=== PATIENT | female | born 1935 | race Caucasian/White ===

== ENCOUNTER → 2018-05-25 | Day surgery (SDC) | payer MEDICARE, OTHER ==
[~2018-05-25] MED LIST: ASPIRIN 325 MG TABLET PO PRN; DIAZEPAM 5 MG TABLET PO PRN; DIPHENHYDRAMINE HCL 25 MG CAPSULE PO PRN; NORMAL SALINE 1000 ML 1,000 ML IV PRN; VERAPAMIL HCL 5 MG, LIDOCAINE HCL/PF 4 ML, NORMAL SALINE 12 ML, NITROGLYCERIN/D5W 0.4 M... IV PRN
[2018-05-25 07:20] VITALS: BP 152/91
== END ==
LOC: CCL 06:51
PROVIDERS: ATTEND Internal Medicine Cardiovascular Disease
DX: R69 Illness, unspecified (principal)
CPT/HCPCS: J3490

== ENCOUNTER 2018-06-01 06:56 | Day surgery (SDC) | payer MEDICARE, OTHER ==
[2018-06-01] MEDS ORDERED: HEPARIN SODIUM,PORCINE/NS/PF 2,000 UNIT/1,000 ML RTUINJ IV ONE (08:07)
[2018-06-01] MEDS ORDERED: LIDOCAINE 1% INJ-PF (10 MG/ML) 30 ML SDV ONE (08:07)
[2018-06-01] MEDS ORDERED: MIDAZOLAM 2 MG/2 ML INJ ONE (08:15)
[2018-06-01] MEDS ORDERED: FLUMAZENIL INJ 0.5 MG/5 ML VIAL ONE (08:15)
[2018-06-01] MEDS ORDERED: NALOXONE HCL INJ/PF 0.4 MG/1 ML SDV ONE (08:16)
[2018-06-01] MEDS ORDERED: ATROPINE SULFATE INJ 1 MG/10 ML DISP.SYRIN IV ONE (08:16)
[2018-06-01] MEDS ORDERED: FENTANYL CITRATE INJ/PF 100 MCG/2 ML AMPUL ONE (08:16)
[2018-06-01] MEDS ORDERED: EPINEPHRINE INJ 1 MG/10 ML DISP.SYRIN ONE (08:16)
[2018-06-01] MEDS ORDERED: HEPARIN SOD (PORCINE) 1,000 UNIT/ML 10 ML VIAL ONE ×2 (08:16→08:17)
[2018-06-01] MEDS ORDERED: VERAPAMIL HCL INJ/PF 5 MG/2 ML SDV IV ONE (08:17)
[2018-06-01] MEDS ORDERED: NITROGLYCERIN/D5W 50 MG/250 ML RTUINJ IV ONE (08:17)
--- NOTE | 2018-06-01 10:51 | Operative Report ---
Operative Report DATE OF SURGERY: 06/01/18 PREOPERATIVE DIAGNOSIS: Dyspnea POSTOPERATIVE DIAGNOSIS: No evidence of significant obstructive coronary artery disease. Low left-sided filling pressures OPERATION: Left heart catheterization with selective coronary angiography SURGEON: KALYANI WARREN ANESTHESIA: Moderate Sedation - 26 minutes COMPLICATIONS: None ESTIMATED BLOOD LOSS: None INTRAOPERATIVE FINDINGS: No evidence of significant obstructive coronary artery disease. Low left-sided filling pressures PROCEDURE: Procedure #1 left heart catheterization with selective cholangiography Indication Mrs. Hyde is a very pleasant 82-year-old female with a negative myocardial perfusion study and a normal echocardiogram who has dyspnea on exertion and has had the request to perform left heart catheterization with selective coronary angiography and right heart catheterization for evaluation of coronary anatomy. The patient and her family understand the risks benefits and alternatives including but not limited to heart attack stroke surgery emergent surgery contrast nephropathy and radiation exposure and have expressed his desire to proceed with left heart catheterization and selective coronary angiography and right heart catheterization for evaluation of her coronary anatomy. They understand there is no surgery on site and a EMS is standing by for transfer if required Primary mandrel maker Selvin Oliva Complications none. Consent signed on chart. Procedure patient was prepped and draped in the usual sterile fashion after being brought to the cardiac catheterization laboratory in the fasting state. Conscious sedation was performed for 26 minutes. An independent trained observer push medications at my direction and continuous hemodynamic monitoring was performed. Utilizing ultrasound guidance the right basilic vein could not visualized and utilizing a standard tech after 1% Xylocaine was infiltrated the right radial artery was successfully cannulated with a 6 x 11 cm sheath. After 5000 units of heparin and 200 mcg of nitroglycerin were administered, left heart catheterization with selective coronary angiography was performed utilizing enteric catheter. Hemodynamics: In the sedated fasting state the left ventricular pressure was 94/ 0 with an LVEDP of 2. Aortic pressure is 90/47 with a mean of 64. Selective coronary angiography was performed Findings #1 the left main is of moderate caliber and mildly calcific and bifurcates into LAD and left circumflex. It is free of significant disease. 2. The left circumflex is of moderate caliber and moderately calcific. It provides 2 main obtuse marginal branches. They are somewhat tortuous. It is otherwise free of significant disease. 3. The LAD is of good caliber. Provides a main diagonal branch which serves as a codominant LAD. The LAD fails to terminate at the apex. There is a normal complement of septal perforators. It is moderately calcific. There is a 50% stenosis in the mid LAD. 4. The right coronary artery is a moderate size and dominant. It is somewhat tortuous. It is moderately calcific. It is free of significant disease. Impression #1 no evidence of significant obstructive coronary artery disease #2 low left-sided filling pressures plan #1 maximize medical therapy 2. Case was discussed with Dr. Selvin Oliva, the patient's primary mandrel maker, immediately following the completion of the procedure.
[2018-06-01 12:55] VITALS: BP 145/73
[2018-06-01] MEDS ORDERED: (PENDING PHARMACY ID) (Ferrous Gluconate [Ferrous Gluconate] 324 MG) PO SCH (14:00)
[2018-06-01] MEDS ORDERED: FERROUS SULFATE 325 MG TABLET PO SCH (14:00)
[2018-06-01] MEDS ORDERED: APIXABAN 5 MG TABLET PO SCH (18:00)
[2018-06-01] MEDS ORDERED: ATORVASTATIN CALCIUM 10 MG TABLET PO SCH (22:00)
[2018-06-02] MEDS ORDERED: LEVOTHYROXINE SODIUM 0.088 MG TABLET PO SCH (06:00)
[2018-06-02] MEDS ORDERED: LOSARTAN POTASSIUM 50 MG TABLET PO SCH (10:00)
[2018-06-02] MEDS ORDERED: FLUTICASONE NASAL SPRAY 50 MCG/SPRY 120 SPRAY/16 GM NASL SCH (10:00)
[2018-06-02] MEDS ORDERED: METOPROLOL SUCCINATE 25 MG TAB.SR.24H PO SCH (10:00)
[2018-06-02] MEDS ORDERED: POTASSIUM CHLORIDE 10 MEQ CAPSULE.ER PO SCH (10:00)
[2018-06-02] MEDS ORDERED: (PENDING PHARMACY ID) (Losartan Potassium [Losartan Potassium] 100 MG) PO SCH (10:00)
== END 2018-06-01 13:08 | disposition home or self-care (01) ==
LOC: CCL 06:56
PROVIDERS: ATTEND Internal Medicine Cardiovascular Disease
DX: R06.00 Dyspnea, unspecified (principal); R07.9 Chest pain, unspecified; I48.0 Paroxysmal atrial fibrillation; I11.9 Hypertensive heart disease without heart failure; E78.2 Mixed hyperlipidemia; E03.9 Hypothyroidism, unspecified; D50.0 Iron deficiency anemia secondary to blood loss (chronic); M79.2 Neuralgia and neuritis, unspecified; R00.2 Palpitations; R73.03 Prediabetes; G47.30 Sleep apnea, unspecified; E53.8 Deficiency of other specified B group vitamins; Z88.2 Allergy status to sulfonamides; Z88.8 Allergy status to other drugs, medicaments and biological substances; Z79.01 Long term (current) use of anticoagulants; Z79.899 Other long term (current) drug therapy
CPT/HCPCS: 76937; 93454; C1887; J2250; A9270 ×2; J3010; J1644 ×2; J3490 ×5; J0171; J0461; J2310

== ENCOUNTER 2018-11-27 14:04 | Observation (INO) | payer MEDICARE, OTHER ==
--- NOTE | 2018-11-27 14:23 | ER Document Report ---
ED General - General Stated Complaint: HEART PALPATIONS Time Seen by Provider: 11/27/18 14:10 Primary Care Provider: LIANNA CESAR MD [Primary Care Provider] - Follow up as needed TRAVEL OUTSIDE OF THE [place] IN LAST 30 DAYS: No - HPI Notes: Patient is a 83-year-old female that presents to the emergency department for chief complaint of palpitations. Patient states around 1300 today she was at home and had sudden onset of heart palpitations. She states she then felt very sweaty, short of breath and lightheaded. She states she felt a heaviness in her chest. She does have a history of atrial fibrillation and is on Eliquis and metoprolol. She takes her Eliquis twice daily and has taken it this morning. She denies missing any doses of her Eliquis. Patient called EMS who reported she was in atrial fibrillation with RVR with an initial rate in the 200s. Patient started to have altered ment al status and was cardioverted by EMS using 2.5 mg Versed and 100 J of synchronized cardioversion. Patient reports after cardioversion her symptoms completely resolved. She sees Dr. Oliva for cardiology. She currently states she feels back to normal. She denies any recent illness, fevers, cough and dysuria. Past Medical History: Atrial fibrillation, hypertension, hyperlipidemia, JIMMIE Past Surgical History: Reviewed in chart Social History: Denies tobacco use Family History: Reviewed and noncontributory for presenting illness Allergies: Reviewed, see documented allergy list. REVIEW OF SYSTEMS: CONSTITUTIONAL : No fever No chills diaphoresis No recent illness EENT: No vision changes No congestion No sore throat CARDIOVASCULAR: chest pain palpitations RESPIRATORY: shortness of breath No cough difficulty breathing GASTROINTESTINAL: No abdominal pain No nausea No vomiting No diarrhea GENITOURINARY: No dysuria No hematuria No difficulty urinating MUSCULOSKELETAL: No back pain No leg pain No arm pain SKIN: No rashes No lesions LYMPHATIC: No swollen, enlarged glands. NEUROLOGICAL: lightheadedness No headache No weakness No paresthesias PSYCHIATRIC: No anxiety No depression PHYSICAL EXAMINATION: Vital signs reviewed, nursing noted reviewed. GENERAL: Well-appearing, well-nourished and in no acute distress. HEAD: Atraumatic, normocephalic. EYES: Eyes appear normal, extraocular movements intact, sclera anicteric, conjunctiva are normal. ENT: nares patent, oropharynx clear without exudates. Moist mucous membranes. NECK: Normal range of motion, supple without lymphadenopathy LUNGS: Breath sounds clear to auscultation bilaterally and equal. No wheezes rales or rhonchi. HEART: Regular rate and rhythm without murmurs, +2/4 bilateral radial and DP pulses ABDOMEN: Soft, nontender, normoactive bowel sounds. No rebound, guarding, or rigidity. No masses appreciated. EXTREMITIES: Nontender, good range of motion, no pitting or edema. NEUROLOGICAL: Moves all extremities spontaneously, sensory grossly intact on exam. Right drop foot PSYCH: Normal mood, normal affect. SKIN: Warm, Dry, normal turgor, no rashes or lesions noted on exposed skin - Related Data Allergies/Adverse Reactions: LESTER Inhibitors Allergy (Verified 05/25/18 05:58) dabigatran etexilate [From Pradaxa] Allergy (Verified 05/25/18 05:58) simvastatin [From Zocor] Allergy (Verified 05/25/18 05:58) Sulfa (Sulfonamide Antibiotics) Allergy (Verified 05/25/18 05:58) Past Medical History - Social History Smoking Status: Never Smoker Family History: Reviewed & Not Pertinent - Past Medical History Cardiac Medical History: Reports: Hx Hypercholesterolemia, Hx Hypertension Denies: Hx Coronary Artery Disease Pulmonary Medical History: Denies: Hx Asthma, Hx Bronchitis, Hx COPD, Hx Pneumonia, Hx Tuberculosis Neurological Medical History: Denies: Hx Cerebrovascular Accident, Hx Seizures Endocrine Medical History: Reports: Hx Hyperthyroidism Musculoskeletal Medical History: Reports Hx Arthritis Past Surgical History: Reports: Hx Cholecystectomy, Hx Orthopedic Surgery - rtkr. Denies: Hx Pacemaker - Immunizations Hx Diphtheria, Pertussis, Tetanus Vaccination: Yes Course - Re-evaluation Re-evalutation: 11/27/18 14:22 Vitals reviewed. Nursing notes reviewed. Patient is in normal sinus rhythm with stable vital signs and no symptoms at presentation. I did review EMSs rhythm strip which appears consistent with A. fib with RVR. Patient was placed on our telemetry monitoring and is currently resting comfortably. 11/27/18 17:33 Patient reevaluated. Her troponin is 0.022. She has not had any recurrence of her atrial fibrillation since being placed on telemetry monitor. Patient did state that she had some left-sided chest heaviness that has since resolved since being in the ED. She denied any associated diaphoresis nausea vomiting or shortness of breath. Patient did receive aspirin. She is also complaining of pain in her right shoulder which is chronic. She states she has seen orthopedic surgery but has not had any imaging. She denied any trauma to the right shoulder. She is requesting x-ray of the right shoulder which will be performed. Patient was given Tylenol for her shoulder pain. Since patient has had intermittent chest pain she will be admitted to the hospital for cardiac monitoring and repeat troponins. Patient and family in agreement with plan of care. She is stable at time of admission. Laboratory 11/27/18 11/27/18 11/27/18 15:02 15:02 15:02 WBC 5.1 RBC 3.96 Hgb 12.1 Hct 36.0 MCV 91 MCH 30.5 MCHC 33.6 RDW 13.3 Plt Count 203 Seg Neutrophils % 78.6 H Lymphocytes % 11.6 L Monocytes % 6.9 Eosinophils % 1.9 Basophils % 1.0 Absolute Neutrophils 4.0 Absolute Lymphocytes 0.6 Absolute Monocytes 0.4 Absolute Eosinophils 0.1 Absolute Basophils 0.0 Sodium 139.0 Potassium 4.3 Chloride 103 Carbon Dioxide 28 Anion Gap 8 BUN 12 Creatinine 0.77 Est GFR ( Amer) > 60 Est GFR (Non-Af Amer) > 60 Glucose 158 H Calcium 9.5 Total Bilirubin 0.4 Direct Bilirubin 0.2 Neonat Total Bilirubin Not Reportable Neonat Direct Bilirubin Not Reportable Neonat Indirect Bili Not Reportable AST 56 H ALT 56 H Alkaline Phosphatase 68 Troponin I 0.022 Total Protein 6.4 Albumin 4.1 Chest X-Ray 11/27/18 14:10 IMPRESSION: NO ACUTE RADIOGRAPHIC FINDING IN THE CHEST. - Laboratory Result Diagrams: 11/27/18 15:02 11/27/18 15:02 Laboratory results interpreted by me: 11/27/18 11/27/18 15:02 15:02 Seg Neutrophils % 78.6 H Lymphocytes % 11.6 L Glucose 158 H AST 56 H ALT 56 H - EKG Interpretation by Me Additional EKG results interpreted by me: 11/27/18 14:46 Interpreted by myself 1421: Normal sinus rhythm, rate 93, normal axis, no ectopy, no STEMI, LVH Discharge - Discharge Clinical Impression: Atrial fibrillation with RVR Chest pain Qualifiers: Chest pain type: unspecified Qualified Code(s): R07.9 - Chest pain, unspecified Condition: Stable Disposition: ADMITTED OBSERVATION Admitting Provider: Hospitalist Unit Admitted: Telemetry Referrals: LIANNA CESAR MD [Primary Care Provider] - Follow up as needed
--- NOTE | 2018-11-27 14:54 | RADIOLOGY REPORT (SQ) ---
EXAM DESCRIPTION: CHEST SINGLE VIEW COMPLETED DATE/TIME: 11/27/2018 2:45 pm REASON FOR STUDY: palpitations COMPARISON: Chest films 06/12/2012 EXAM PARAMETERS: NUMBER OF VIEWS: One view. TECHNIQUE: Single frontal radiographic view of the chest acquired. RADIATION DOSE: NA LIMITATIONS: None. FINDINGS: LUNGS AND PLEURA: No opacities, masses or pneumothorax. No pleural effusion. MEDIASTINUM AND HILAR STRUCTURES: No masses. Contour normal. HEART AND VASCULAR STRUCTURES: Heart normal in size. Normal vasculature. BONES: No acute findings. HARDWARE: None in the chest. OTHER: No other significant finding. IMPRESSION: NO ACUTE RADIOGRAPHIC FINDING IN THE CHEST. TECHNICAL DOCUMENTATION: JOB ID: [id number] [employer]- All Rights Reserved Reading location - IP/workstation name: [email or web address]
[2018-11-27 15:22] LABS: ABSOLUTE EOSINOPHILS # (AUTO) 0.1 10^3/uL (0.0-0.6); ABSOLUTE LYMPHOCYTES (AUTO) 0.6 10^3/uL (0.5-4.7); ABSOLUTE MONOCYTES (AUTO) 0.4 10^3/uL (0.1-1.4); EOSINOPHILS % (AUTO) 1.9 % (0-6); HEMOGLOBIN 12.1 g/dL (12.0-15.5); LYMPHOCYTES % (AUTO) 11.6 % (13-45); MEAN CORPUSCULAR HEMOGLOBIN 30.5 pg (27.0-33.4); MEAN CORPUSCULAR HGB CONC 33.6 g/dL (32.0-36.0); MEAN CORPUSCULAR VOLUME 91 fl (80-97); MONOCYTES % (AUTO) 6.9 % (3-13); PLATELET COUNT 203 10^3/uL (150-450); RED BLOOD COUNT 3.96 10^6/uL (3.72-5.28); RED CELL DISTRIBUTION WIDTH 13.3 % (11.5-14.0); SEGMENTED NEUTROPHILS % (AUTO) 78.6 % (42-78); TOTAL CELLS COUNTED % (AUTO) 100 %; WHITE BLOOD COUNT 5.1 10^3/uL (4.0-10.5)
[2018-11-27 15:38] LABS: ALANINE AMINOTRANSFERASE 56 U/L (9-52); ALBUMIN 4.1 g/dL (3.5-5.0); ALKALINE PHOSPHATASE 68 U/L (38-126); ANION GAP 8 (5-19); ASPARTATE AMINO TRANSFERASE 56 U/L (14-36); BILIRUBIN,DIRECT 0.2 mg/dL (0.0-0.4); BILIRUBIN,TOTAL 0.4 mg/dL (0.2-1.3); BLOOD UREA NITROGEN 12 mg/dL (7-20); CALCIUM 9.5 mg/dL (8.4-10.2); CARBON DIOXIDE 28 mmol/L (22-30); CHLORIDE 103 mmol/L (98-107); GLUCOSE 158 mg/dL (75-110); POTASSIUM 4.3 mmol/L (3.6-5.0); TOTAL PROTEIN 6.4 g/dL (6.3-8.2)
[2018-11-27] MEDS ORDERED: ASPIRIN 81 MG TABLET, CHEWABLE PO ONE (17:32)
[2018-11-27] MEDS ORDERED: ACETAMINOPHEN 325 MG TABLET PO ONE (17:33)
--- NOTE | 2018-11-27 18:02 | EKG REPORT ---
SEVERITY:- ABNORMAL ECG - SINUS RHYTHM PROBABLE LVH WITH SECONDARY REPOL ABNRM : Confirmed by: Louise Goyal MD 27-Nov-2018 18:02:08
--- NOTE | 2018-11-27 18:05 | PDOC H&P ---
History of Present Illness Admission Date/PCP: LIANNA CESAR MD History of Present Illness: NATHAN CHUN is a 83 year old female patient with past medical history of chronic A. fib, hypertension, hyperlipidemia, gastroesophageal reflux disease brought to the hospital with chief complaint of chest pain. Prior to the chest pain she has sudden onset palpitation and family activated EMS by the time EMS arrived patient's heart rate was in the range of 200 patient was alissa rgic and shock with her and she cardioverted to sinus rhythm. When she arrived her heart rate is 93 and it is in sinus rhythm. Patient complained of chest pain localized to the right side and radiating to her shoulder blade into her right arm. Patient denies any fever, chills, cough or diaphoresis. No nausea vomiting, abdominal pain or diarrhea. No urinary complaints. No dizziness, headache, blurring of vision or any seizure activity. Past Medical History Cardiac Medical History: Reports: Hyperlipidema, Hypertension Denies: Coronary Artery Disease Pulmonary Medical History: Denies: Asthma, Bronchitis, Chronic Obstructive Pulmonary Disease (COPD), Pneumonia, Tuberculosis Neurological Medical History: Denies: Seizures Endocrine Medical History: Reports: Hyperthyroidism Musculoskeltal Medical History: Reports: Arthritis Hematology: Reports: Anemia - Iron deficiency Past Surgical History Past Surgical History: Reports: Cholecystectomy, Orthopedic Surgery - rtkr Denies: Pacemaker Social History Smoking Status: Never Smoker Hx Recreational Drug Use: No Hx Prescription Drug Abuse: No - Advance Directive Resuscitation Status: Full Code Family History Family History: Reviewed & Not Pertinent, Hypertension Parental Family History Reviewed: Yes Children Family History Reviewed: Yes Sibling(s) Family History Reviewed.: Yes Medication/Allergy Home Medications: Levothyroxine Sodium [Synthroid 88 Mcg Tablet] 88 mcg PO DAILY 06/12/12 Pravastatin Sodium [Pravachol] 20 mg PO QHS 06/12/12 Apixaban [Eliquis 5 mg Tablet] 5 mg PO BID 05/24/18 Ferrous Gluconate 324 mg PO TID 05/24/18 Fluticasone Propionate [Flonase Nasal Castell 50 Mcg/Castell 16 gm] 2 sprays NASL DAILY 05/24/18 Losartan Potassium 100 mg PO DAILY 05/24/18 Metoprolol Succinate 25 mg PO DAILY 05/24/18 Potassium Chloride 20 meq PO DAILY 05/24/18 Allergies/Adverse Reactions: LESTER Inhibitors Allergy (Verified 05/25/18 05:58) dabigatran etexilate [From Pradaxa] Allergy (Verified 05/25/18 05:58) simvastatin [From Zocor] Allergy (Verified 05/25/18 05:58) Sulfa (Sulfonamide Antibiotics) Allergy (Verified 05/25/18 05:58) Review of Systems Constitutional: PRESENT: as per HPI Eyes: PRESENT: as per HPI Ears: PRESENT: as per HPI Cardiovascular: PRESENT: chest pain Gastrointestinal: PRESENT: as per HPI Neurological: PRESENT: as per HPI Physical Exam General appearance: PRESENT: no acute distress Neck exam: ABSENT: carotid bruit, JVD, lymphadenopathy, thyromegaly Respiratory exam: PRESENT: clear to auscultation cresencio. ABSENT: rales, rhonchi, wheezes Cardiovascular exam: PRESENT: RRR GI/Abdominal exam: PRESENT: normal bowel sounds, soft. ABSENT: distended, guarding, mass, organolmegaly, rebound, tenderness Rectal exam: PRESENT: deferred Neurological exam: PRESENT: alert, awake, oriented to time, oriented to situation Results Laboratory Results: 11/27/18 15:02 11/27/18 15:02 11/27/18 11/27/18 15:02 15:02 WBC 5.1 RBC 3.96 Hgb 12.1 Hct 36.0 MCV 91 MCH 30.5 MCHC 33.6 RDW 13.3 Plt Count 203 Seg Neutrophils % 78.6 H Lymphocytes % 11.6 L Monocytes % 6.9 Eosinophils % 1.9 Basophils % 1.0 Absolute Neutrophils 4.0 Absolute Lymphocytes 0.6 Absolute Monocytes 0.4 Absolute Eosinophils 0.1 Absolute Basophils 0.0 Sodium 139.0 Potassium 4.3 Chloride 103 Carbon Dioxide 28 Anion Gap 8 BUN 12 Creatinine 0.77 Est GFR ( Amer) > 60 Est GFR (Non-Af Amer) > 60 Glucose 158 H Calcium 9.5 Total Bilirubin 0.4 AST 56 H ALT 56 H Alkaline Phosphatase 68 Total Protein 6.4 Albumin 4.1 11/27/18 15:02 Troponin I 0.022 Impressions: Chest X-Ray 11/27/18 14:10 IMPRESSION: NO ACUTE RADIOGRAPHIC FINDING IN THE CHEST. Assessment & Plan - Diagnosis (1) Chest pain Is this a current diagnosis for this admission?: Yes Plan: We will trend cardiac enzymes, repeat EKG and cardiac stress test. (2) Atrial fibrillation with RVR Is this a current diagnosis for this admission?: Yes Plan: Resolved and now in a sinus rhythm after she is cardioverted by EMS. (3) Hyperlipidemia Qualifiers: Hyperlipidemia type: pure hypercholesterolemia Qualified Code(s): E78.00 - Pure hypercholesterolemia, unspecified; E78.0 - Pure hypercholesterolemia Is this a current diagnosis for this admission?: Yes Plan: Continue Lipitor (4) Hypertension Qualifiers: Hypertension type: essential hypertension Qualified Code(s): I10 - Essential (primary) hypertension Is this a current diagnosis for this admission?: Yes Plan: Continue metoprolol and losartan
[2018-11-27] MEDS ORDERED: ONDANSETRON HCL INJ/PF 4 MG/2 ML SDV IV PRN (18:06)
--- NOTE | 2018-11-27 19:06 | RADIOLOGY REPORT (SQ) ---
EXAM DESCRIPTION: SHOULDER RIGHT 2 OR MORE VIEWS COMPLETED DATE/TIME: 11/27/2018 6:29 pm REASON FOR STUDY: shoulde pain R07.89 OTHER CHEST PAIN I49.8 OTHER SPECIFIED CARDIAC ARRHYTHMIAS COMPARISON: None. NUMBER OF VIEWS: Three views. TECHNIQUE: Internal rotation, external rotation, and Y view images acquired of the right shoulder. LIMITATIONS: None. FINDINGS: MINERALIZATION: Normal. BONES: No acute fracture or dislocation. No worrisome bone lesions. JOINTS: No dislocation. VISUALIZED LUNGS AND RIBS: No pneumothorax. No rib fracture. SOFT TISSUES: No radiopaque foreign body. OTHER: No other significant finding. IMPRESSION: NO RADIOGRAPHIC EVIDENCE OF ACUTE INJURY. TECHNICAL DOCUMENTATION: JOB ID: [id number] [id number] 2010 [employer]- All Rights Reserved Reading location - IP/workstation name: [email or web address]
--- NOTE | 2018-11-27 19:11 | RADIOLOGY REPORT (SQ) ---
EXAM DESCRIPTION: CT CHEST WITHOUT COMPLETED DATE/TIME: 11/27/2018 6:50 pm REASON FOR STUDY: Rt chest pain R07.89 OTHER CHEST PAIN I49.8 OTHER SPECIFIED CARDIAC ARRHYTHMIAS COMPARISON: None. TECHNIQUE: CT scan performed of the chest without intravenous contrast. Images reviewed with lung, soft tissue and bone windows. Reconstructed coronal and sagittal MPR images reviewed. All images st ored on PACS. All CT scanners at this facility use dose modulation, iterative reconstruction, and/or weight based d osing when appropriate to reduce radiation dose to as low as reasonably achievable (ALARA). [facility]: Dose Right [facility]: CareDose [facility]: Dose Right [facility]: Teradose 4D [facility]: Smart [employer] RADIATION DOSE: CT Rad equipment meets quality standard of care and radiation dose reduction techniq ues were employed. CTDIvol: 5.2 mGy. DLP: 192 mGy-cm. mGy. LIMITATIONS: No technical limitations. FINDINGS: LUNGS AND PLEURA: No masses, infiltrates, or pneumothorax. No pleural effusions or pleura l calcifications. HILAR AND MEDIASTINAL STRUCTURES: No identified masses or abnormal nodes. No obvious aneurysm. HEART AND VASCULAR STRUCTURES: No aneurysm. No pericardial effusion. Moderate coronary calcificatio ns. UPPER ABDOMEN: No significant findings. Limited exam. THYROID AND OTHER SOFT TISSUES: No masses. No adenopathy. BONES: No acute finding. Move mild degenerative changes in the spine. HARDWARE: None in the chest. OTHER: No other significant findings. IMPRESSION: No acute findings. TECHNICAL DOCUMENTATION: JOB ID: [id number] [place]-72 Quality ID # [id number]: Final reports with documentation of one or more dose reduction techniques (e.g., Au tomated exposure control, adjustment of the mA and/or kV according to patient size, use of iterative reconstruction technique) 2010 [employer]- All Rights Reserved Reading location - IP/workstation name: [email or web address]
[2018-11-27] MEDS ORDERED: ENOXAPARIN SODIUM INJ 40 MG/0.4 ML DISP.SYRIN SUBCUT SCH (20:00)
[2018-11-27] MEDS: FAMOTIDINE 20 MG TABLET PO SCH (21:48)
[2018-11-28 05:21] LABS: ANION GAP 7 (5-19); BLOOD UREA NITROGEN 14 mg/dL (7-20); CALCIUM 8.6 mg/dL (8.4-10.2); CARBON DIOXIDE 26 mmol/L (22-30); CHLORIDE 108 mmol/L (98-107); CHOLESTEROL 100.17 mg/dL (0-200); GLUCOSE 105 mg/dL (75-110); POTASSIUM 3.8 mmol/L (3.6-5.0); SODIUM 140.6 mmol/L (137-145); TRIGLYCERIDES 98 mg/dL (<150)
[2018-11-28 05:31] LABS: DIRECT LDL 52 mg/dL (<100)
--- NOTE | 2018-11-28 05:39 | Physician Advisory Note ---
Physician Advisor ProgressNote .: Pursuant to the plan for [facility], I have reviewed the medical record for this patient. Physician Advisor Statement: Status: appropriately made Obs initially for CP w/resolved Afib RVR. If worsened/-ing clinical status prevents safe stress testing today & requires a 2nd MN tonight, will be appropriate to document the ongoing acute clinical issues/concerns & change to INpatient status. Please consider documenting, if you agree: 1. "Acute NSTEMI, suspect ___ wall/artery, evidenced by (+) trop Is & (+)sx" vs. "Acute CP, suspect due to angina/acute ischemic heart disease" vs. "Acute CP, suspect due to " 2. Is pt's Afib "paroxysmal, with acute recurrence w/RVR", or "Chronic Afib, with RVR", or "Acute new Afib w/RVR, resolved"? Thanks! CK
[2018-11-28] MEDS: ACETAMINOPHEN 325 MG TABLET PO PRN ×2 (07:28→12:36)
[2018-11-28] MEDS: FAMOTIDINE 20 MG TABLET PO SCH (10:12)
[2018-11-28] MEDS ORDERED: (PENDING PHARMACY ID) (Acetaminophen [Tylenol Extra Strength 500 Mg Tablet] 500 MG) PO PRN (12:54)
[2018-11-28] MEDS ORDERED: ACETAMINOPHEN 325 MG TABLET PO PRN (13:11)
[2018-11-28] MEDS ORDERED: ASPIRIN 81 MG TABLET, ENT COATED PO SCH (15:00)
[2018-11-28] MEDS ORDERED: CYANOCOBALAMIN (VITAMIN B-12) 1,000 MCG TABLET PO SCH (15:00)
[2018-11-28] MEDS ORDERED: LOSARTAN POTASSIUM 50 MG TABLET PO SCH (15:00)
[2018-11-28] MEDS ORDERED: CHOLECALCIFEROL (D3) 1,000 UNIT TABLET PO SCH (15:00)
[2018-11-28] MEDS ORDERED: POTASSIUM CHLORIDE 10 MEQ CAPSULE.ER PO SCH (16:00)
[2018-11-28] MEDS ORDERED: DILTIAZEM HCL 120 MG CAP.SR.24H PO ONE (16:00)
[2018-11-28] MEDS ORDERED: METOPROLOL SUCCINATE 25 MG TAB.SR.24H PO SCH (16:00)
[2018-11-28] MEDS ORDERED: REGADENOSON INJ 0.4 MG/5 ML DISP.SYRIN IV ONE (16:26)
[2018-11-28 16:39] VITALS: BP 140/64
--- NOTE | 2018-11-28 16:42 | PDOC DISCHARGE SUMMARY ---
General - Admit/Disc Date/PCP Admission Date/Primary Care Provider: 11/27/18 17:59 LIANNA CESAR MD Discharge Date: 11/28/18 - Discharge Diagnosis (1) Suspected non-STEMI Is this a current diagnosis for this admission?: Yes (2) Chest pain Is this a current diagnosis for this admission?: Yes (3) Atrial fibrillation with RVR Is this a current diagnosis for this admission?: Yes (4) Hyperlipidemia Is this a current diagnosis for this admission?: Yes (5) Hypertension Is this a current diagnosis for this admission?: Yes - Additional Information Resuscitation Status: Full Code Prescriptions: Diltiazem HCl [Cardizem Cd 120 mg Capsule] 120 mg PO DAILY #30 cap.sr.24h Home Medications: Acetaminophen [Tylenol Extra Strength 500 mg Tablet] 500 mg PO Q4HP PRN 11/28/18 Aspirin [Adult Low Dose Aspirin EC] 81 mg PO DAILY 11/28/18 Atorvastatin Calcium [Lipitor 40 mg Tablet] 40 mg PO QHS 11/28/18 Cholecalciferol (Vitamin D3) [Vitamin D3 1000 Unit Tablet] 1,000 unit PO DAILY 11/28/18 Cyanocobalamin (Vitamin B-12) [Vitamin B-12 1000 mcg Tablet] 1,000 mcg PO DAILY 11/28/18 Diltiazem HCl [Cardizem Cd 120 mg Capsule] 120 mg PO DAILY #30 cap.sr.24h 11/28/18 Ferrous Sulfate [Feosol 325 mg Tablet] 325 mg PO DAILY 11/28/18 Fluticasone Propionate [Flonase Nasal [place] 50 Mcg/[place] 16 gm] 1 spray NASL DAILY 11/28/18 Levothyroxine Sodium 88 mcg PO Q6AM 11/28/18 Losartan Potassium [Cozaar 100 mg Tablet] 100 mg PO DAILY 11/28/18 Metoprolol Succinate [Toprol Xl 25 mg Tab.sr] 25 mg PO DAILY 11/28/18 Multivitamin [Multiple Vitamins] 1 tab PO DAILY 11/28/18 Potassium Chloride [Klor-Con M20] 20 meq PO DAILY 11/28/18 History of Present Illness History of Present Illness: NATHAN CHUN is a 83 year old female patient with past medical history of chronic A. fib, hypertension, hyperlipidemia, gastroesophageal reflux disease brought to the hospital with chief complaint of chest pain. Prior to the chest pain she has sudden onset palpitation and family activated EMS by the time EMS arrived patient's heart rate was in the range of 200 patient was lethargic and shock with her and she cardioverted to sinus rhythm. When she arrived her heart rate is 93 and it is in sinus rhythm. Patient complained of chest pain localized to the right side and radiating to her shoulder blade into her right arm. Patient denies any fever, chills, cough or diaphoresis. No nausea vomiting, abdominal pain or diarrhea. No urinary complaints. No dizziness, headache, blurring of vision or any seizure activity. Hospital Course Hospital Course: NATHAN CHUN is a 83 year old female patient with past medical history of chronic A. fib, hypertension, hyperlipidemia, gastroesophageal reflux disease and coronary artery disease presents with chest pain. Patient remained chest pain-free throughout the night. Her breathing also trending down. Morning patient nuclear cardiac stress test with the results pending. Patient states that she cannot wait for the test results and she wants to be discharged now and wants the result communicated to her by phone. 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 Her recent cardiac catheterization which was done in May 2018 was reported as nonobstructive coronary artery disease. Physical Exam Vital Signs: Temp Pulse Resp BP Pulse Ox 97.8 F 77 16 169/61 H 100 11/28/18 15:12 11/28/18 15:12 11/28/18 15:12 11/28/18 15:12 11/28/18 15:12 Intake & Output 11/27/18 11/28/18 11/29/18 06:59 06:59 06:59 Intake Total 1300 Balance 1300 Weight 61.1 kg General appearance: PRESENT: no acute distress Eye exam: PRESENT: conjunctiva pink Mouth exam: PRESENT: moist Neck exam: ABSENT: carotid bruit, JVD, lymphadenopathy, thyromegaly Respiratory exam: PRESENT: clear to auscultation cresencio. ABSENT: rales, rhonchi, wheezes Cardiovascular exam: PRESENT: RRR. ABSENT: diastolic murmur, rubs, systolic murmur GI/Abdominal exam: PRESENT: normal bowel sounds, soft. ABSENT: distended, guarding, mass, organolmegaly, rebound, tenderness Neurological exam: PRESENT: alert, awake, oriented to time, oriented to situation Results Laboratory Results: 11/27/18 15:02 11/28/18 04:31 11/28/18 11/28/18 04:31 04:31 Sodium 140.6 Potassium 3.8 Chloride 108 H Carbon Dioxide 26 Anion Gap 7 BUN 14 Creatinine 0.82 Est GFR ( Amer) > 60 Est GFR (Non-Af Amer) > 60 Glucose 105 Calcium 8.6 Triglycerides 98 Cholesterol 100.17 LDL Cholesterol Direct 52 VLDL Cholesterol 20.0 HDL Cholesterol 41 TSH 2.25 11/27/18 11/27/18 11/28/18 15:02 18:59 04:31 Troponin I 0.022 0.092 0.077 Impressions: Chest CT 11/27/18 00:00 IMPRESSION: No acute findings. Chest X-Ray 11/27/18 14:10 IMPRESSION: NO ACUTE RADIOGRAPHIC FINDING IN THE CHEST. Shoulder X-Ray 11/27/18 17:33 IMPRESSION: NO RADIOGRAPHIC EVIDENCE OF ACUTE INJURY. Qualifiers - * PATIENT BEING DISCHARGED WITH ANY OF THE FOLLOWING DIAGNOSIS: No
[2018-11-28] MEDS ORDERED: APIXABAN 5 MG TABLET PO SCH (18:00)
--- NOTE | 2018-11-28 19:22 | DRAGON STRESS TEST REPORT ---
Intravenous Lexiscan Cardiolite stress test using single photon emmision computerized tomography. Date of procedure: 11/28/2018. Ordering Provider: Dr. Giraldo.Patient's status: In Patient. Attending Inspector Mechanical: Dr. Kody Oliva. Indication: Chest pain. Coronary risk factors: Age, hypertension, and dyslipidemia. Resting EKG: Sinus Rhythm. T inversion in the lateral leads. The patient had no chest pain or discomfort, and there is no arrhythmias seen. She had transient shortness of breath, without wheezing, which is relieved by the patient drinking Pepsi Stress EKG: There is a [address] segment depression in the inferior leads consistent with Lexiscan induced ischemia by EKG.. Reason for termination: Protocol. Conclusions: Normal EKG and hemodynamic response to IV Lexiscan. Nuclear data: At rest the patient was given 10.7 Millicuries of technetium 99m sestamibi injected intravenously. As per protocol rest non gated SPECT images were obtained. Subsequently the patient was given intravenous Lexiscan at a dose of 0.4 mg in 5 mL intravenously, followed by flush with normal saline. Subsequently the stress dose of 30.0 millicuries of technetium 99m sestamibi was injected intravenously. As per protocol stress gated images were obtained. Nuclear interpretation: Review of images showed that all segments of the myocardium had normal perfusion at rest, and normal perfusion post stress with IV Lexiscan. All segments of the myocardium had normal motion, contraction, and thickening by gated study. T. I D. ratio was normal at 1.06. There is no transient ischemic dilatation of the left ventricle. Computer read rest, and stress left ventricular ejection fraction were 59 %, and 60 %, respectively. Conclusion: 1. There is no scintigraphic evidence of Lexiscan induced myocardial ischemia. 2. There is no scintigraphic evidence of myocardial infarction/scar. 3. There is EKG evidence of Lexiscan induced ischemia. This could mean that the patient's MACE is slightly more than a patient with no Lexiscan induced EKG evidence of ischemia, and normal nuclear perfusion imaging. Recommendations: 1.Aggressive risk factor modification, and treating the underlying co- morbidities. 2.This could mean that the patient's MACE is slightly more than a patient with no Lexiscan induced EKG evidence of ischemia, and normal nuclear perfusion imaging. 3. Recommend close cardiology follow-up. This is been discussed with the patient's and the patient's family at the request of the hospitalist attending physician. Discussed the findings with the hospitalist physician also. BRENDA
[2018-11-28] MEDS ORDERED: ATORVASTATIN CALCIUM 40 MG TABLET PO SCH (22:00)
[2018-11-29] MEDS ORDERED: LEVOTHYROXINE SODIUM 0.088 MG TABLET PO SCH (06:00)
[2018-11-29] MEDS ORDERED: FERROUS SULFATE 325 MG TABLET PO SCH (10:00)
[2018-11-29] MEDS ORDERED: FLUTICASONE NASAL SPRAY 50 MCG/SPRY 120 SPRAY/16 GM NASL SCH (10:00)
[2018-11-29] MEDS ORDERED: (PENDING PHARMACY ID) (Potassium Chloride [Klor-Con M20] 20 MEQ) PO SCH (10:00)
[2018-11-29] MEDS ORDERED: DILTIAZEM HCL 120 MG CAP.SR.24H PO SCH (10:00)
[2018-11-29] MEDS ORDERED: MULTIVITAMIN TABLET PO SCH (10:00)
== END 2018-11-28 17:56 | disposition home or self-care (01) ==
LOC: ER 14:04 → EH 17:59 → 4W 19:50
PROVIDERS: ADMIT Internal Medicine; ATTEND Internal Medicine
DX: R07.9 Chest pain, unspecified (principal); I48.2 Chronic atrial fibrillation; E78.00 Pure hypercholesterolemia, unspecified; I10 Essential (primary) hypertension; I25.10 Atherosclerotic heart disease of native coronary artery without angina pectoris; E05.90 Thyrotoxicosis, unspecified without thyrotoxic crisis or storm; R06.02 Shortness of breath; R42 Dizziness and giddiness; M21.371 Foot drop, right foot; G89.29 Other chronic pain; M25.511 Pain in right shoulder; Z79.899 Other long term (current) drug therapy; Z79.82 Long term (current) use of aspirin; Z90.49 Acquired absence of other specified parts of digestive tract; Z79.02 Long term (current) use of antithrombotics/antiplatelets
CPT/HCPCS: 93005; 99285; 36415 ×2; 84443; 85025; 80048; 80053; 84484 ×2; 80061; 93017; 71045; 73030; 78452; 71250; 93010; G0378 ×3; A9500; J2785; A9270 ×12; J1650; J3490 ×2; Q9969

== ENCOUNTER 2019-10-31 08:31 | Emergency (ER) | payer MEDICARE, OTHER ==
--- NOTE | 2019-10-31 09:43 | ER Document Report ---
Entered by PERI ADAMS SCRIBE 10/31/19 0859 Acting as scribe for:ANNY NUÑEZ MD ED Cardiac - General Chief Complaint: Arrhythmia Stated Complaint: CHEST PAIN Time Seen by Provider: 10/31/19 08:53 Primary Care Provider: LIANNA CESAR MD [Primary Care Provider] - Follow up as needed Mode of Arrival: Medic Information source: Patient Notes: This 84 year old female with A fib with RVR brought in by EMS presents to the ED today with complaints of arrhythmia that began around 5:00 AM this morning. Patient states she felt weak, hot, and nauseous when she woke up this morning and that she called her niece to share her concerns. EMS reports that the patient's heart rate was 150-170 bpm and that they administered 15 mg cardizem. Upon arrival, the patient's heart rate was 136 bpm. Patient complained of burning/feeling hot around her heart at 8:55 AM. At that time, the patient's blood pressure dropped and her heart rate decreased to 20 bpm. The 20 bpm rate lasted approximately 30 seconds. Then the rate went up to 42. Patient denies chest pain at this time. Patient reports that she is on Eliquis, was taken off of aspirin. She did take 3 baby aspirin this morning when she was not feeling well and felt her heart racing. TRAVEL OUTSIDE OF THE [place] IN LAST 30 DAYS: No - Related Data Allergies/Adverse Reactions: LESTER Inhibitors Allergy (Verified 05/25/18 05:58) dabigatran etexilate [From Pradaxa] Allergy (Verified 05/25/18 05:58) simvastatin [From Zocor] Allergy (Verified 05/25/18 05:58) Sulfa (Sulfonamide Antibiotics) Allergy (Verified 05/25/18 05:58) Past Medical History - General Information source: Patient, [facility], LATER [facility] Records - Social History Smoking Status: Never Smoker Cigarette use (# per day): No Chew tobacco use (# tins/day): No Smoking Education Provided: No Frequency of alcohol use: None Drug Abuse: None Family History: Reviewed & Not Pertinent, Hypertension Patient has suicidal ideation: No Patient has homicidal ideation: No - Past Medical History Cardiac Medical History: Reports: Hx Atrial Fibrillation, Hx Hypercholesterolemia, Hx Hypertension Endocrine Medical History: Reports: Hx Hyperthyroidism Musculoskeletal Medical History: Reports Hx Arthritis Past Surgical History: Reports: Hx Cholecystectomy, Hx Orthopedic Surgery - rtkr - Immunizations Hx Diphtheria, Pertussis, Tetanus Vaccination: Yes Hx Pneumococcal Vaccination: 07/11/14 Review of Systems - Review of Systems Constitutional: See HPI, Weakness EENT: No symptoms reported Cardiovascular: See HPI, Heart racing, Other - Burning around heart. denies: Chest pain Respiratory: No symptoms reported Gastrointestinal: See HPI, Nausea Genitourinary: No symptoms reported Female Genitourinary: No symptoms reported Musculoskeletal: No symptoms reported Skin: No symptoms reported Hematologic/Lymphatic: No symptoms reported Neurological/Psychological: No symptoms reported -: Yes All other systems reviewed and negative Physical Exam - Vital signs Vitals: Resp Pulse Ox 20 97 10/31/19 08:40 10/31/19 08:40 - General General appearance: Alert - HEENT Head: Normocephalic, Atraumatic Eyes: Normal Pupils: PERRL - Respiratory Respiratory status: No respiratory distress Chest status: Nontender Breath sounds: Normal Chest palpation: Normal - Cardiovascular Rhythm: Regular Heart sounds: Normal auscultation Murmur: No - Abdominal Inspection: Normal Distension: No distension Bowel sounds: Normal Tenderness: Nontender Organomegaly: No organomegaly - Back Back: Normal, Nontender - Extremities General upper extremity: Normal inspection General lower extremity: Normal inspection - Neurological Neuro grossly intact: Yes - Psychological Associated symptoms: Normal affect, Normal mood - Skin Skin Temperature: Warm Skin Moisture: Dry Skin Color: Normal Course - Re-evaluation Re-evalutation: 10/31/19 14:19 After the patient had the episode of the extreme bradycardia with a rate in the 20s for 30 seconds, her heart rate increased into the 40s, then the 60s, and she was noted to be in a normal sinus rhythm at that point. 10/31/19 16:24 Transport is supposed to be here about 4:30 PM. Patient is comfortable with no chest pain. Vital signs are stable with monitor showing sinus rhythm with a rate of 61. - Vital Signs Vital signs: Temp Pulse Resp BP Pulse Ox 98.3 F 8 L 127/54 H 96 10/31/19 15:00 10/31/19 16:00 10/31/19 16:01 10/31/19 16:01 - Laboratory Result Diagrams: 10/31/19 10:36 10/31/19 10:36 Laboratory results interpreted by me: 10/31/19 10/31/19 10:36 10:36 Seg Neutrophils % 78.9 H Chloride 110 H AST 76 H Total Protein 5.9 L Albumin 3.3 L - Diagnostic Test Radiology reviewed: Image reviewed, Reports reviewed - Chest x-ray does not show acute changes. - EKG Interpretation by Me EKG shows normal: [place], QRS Complexes, ST-T Waves. abnormal: Intervals - Borderline prolonged QT interval Rate: Tachycardia - 136 Rhythm: A.Fib Voltage: Consistant with LVH - Consults Dr. Miller Consulted provider: other - Will accept at [facility]. - Transfer of Care Care transferred to following provider: Dr. Linares Notes: 10/31/19 16:26 Patient is pending transfer to [facility]. Critical Care Note - Critical Care Note Total time excluding time spent on procedures (mins): 40 Discharge - Discharge Clinical Impression: Atrial fibrillation with rapid ventricular response, Bradycardia, Suspected non-STEMI Condition: Stable Disposition: [facility] Referrals: LIANNA CESAR MD [Primary Care Provider] - Follow up as needed Scribe Attestation: 10/31/19 12:37 I personally performed the services described in the documentation, reviewed and edited the documentation which was dictated to the scribe in my presence, and it accurately records my words and actions. I personally performed the services described in the documentation, reviewed and edited the documentation which was dictated to the scribe in my presence, and it accurately records my words and actions.
--- NOTE | 2019-10-31 09:45 | RADIOLOGY REPORT (SQ) ---
EXAM DESCRIPTION: CHEST SINGLE VIEW COMPLETED DATE/TIME: 10/31/2019 8:22 am REASON FOR STUDY: AFIB COMPARISON: 11/27/2018 EXAM PARAMETERS: NUMBER OF VIEWS: One view. TECHNIQUE: Single frontal radiographic view of the chest acquired. RADIATION DOSE: NA LIMITATIONS: None. FINDINGS: LUNGS AND PLEURA: No opacities, masses or pneumothorax. No pleural effusion. MEDIASTINUM AND HILAR STRUCTURES: No masses. Contour normal. HEART AND VASCULAR STRUCTURES: Heart normal in size. Normal vasculature. BONES: No acute findings. HARDWARE: Loop recorder at the left chest wall. OTHER: No other significant finding. IMPRESSION: NO ACUTE RADIOGRAPHIC FINDING IN THE CHEST. TECHNICAL DOCUMENTATION: JOB ID: [id number]- All Rights Reserved Reading location - IP/workstation name: [email or web address]
[2019-10-31 11:19] LABS: HEMATOCRIT 37.6 % (36.0-47.0); HEMOGLOBIN 12.6 g/dL (12.0-15.5); RED BLOOD COUNT 4.11 10^6/uL (3.72-5.28); WHITE BLOOD COUNT 6.2 10^3/uL (4.0-10.5)
[2019-10-31 11:20] LABS: ABSOLUTE EOSINOPHILS # (AUTO) 0.1 10^3/uL (0.0-0.6); ABSOLUTE LYMPHOCYTES (AUTO) 0.9 10^3/uL (0.5-4.7); ABSOLUTE MONOCYTES (AUTO) 0.3 10^3/uL (0.1-1.4); ABSOLUTE NEUT (AUTO) 4.9 10^3/uL (1.7-8.2); BASOPHILS % (AUTO) 0.6 % (0-2); EOSINOPHILS % (AUTO) 0.9 % (0-6); MEAN CORPUSCULAR HEMOGLOBIN 30.8 pg (27.0-33.4); MEAN CORPUSCULAR HGB CONC 33.6 g/dL (32.0-36.0); MEAN CORPUSCULAR VOLUME 92 fl (80-97); MONOCYTES % (AUTO) 5.6 % (3-13); PLATELET COUNT 150 10^3/uL (150-450); RED CELL DISTRIBUTION WIDTH 13.9 % (11.5-14.0); SEGMENTED NEUTROPHILS % (AUTO) 78.9 % (42-78); TOTAL CELLS COUNTED % (AUTO) 100 %
[2019-10-31 11:22] LABS: ALBUMIN 3.3 g/dL (3.5-5.0); ALKALINE PHOSPHATASE 68 U/L (38-126); ASPARTATE AMINO TRANSFERASE 76 U/L (14-36); BILIRUBIN,TOTAL 0.5 mg/dL (0.2-1.3); BLOOD UREA NITROGEN 12 mg/dL (7-20); CALCIUM 8.5 mg/dL (8.4-10.2); GLUCOSE 106 mg/dL (75-110); POTASSIUM 4.3 mmol/L (3.6-5.0); TOTAL PROTEIN 5.9 g/dL (6.3-8.2)
[2019-10-31 11:29] LABS: ANION GAP 5 (5-19); CARBON DIOXIDE 26 mmol/L (22-30); CHLORIDE 110 mmol/L (98-107)
--- NOTE | 2019-10-31 13:48 | EKG REPORT ---
SEVERITY:- ABNORMAL ECG - SINUS BRADYCARDIA MULTIPLE ATRIAL PREMATURE COMPLEXES CONSIDER ANTEROSEPTAL INFARCT ABNORMAL T, CONSIDER ISCHEMIA, LATERAL LEADS : Confirmed by: Gaudencio Brody MD 31-Oct-2019 13:47:39
--- NOTE | 2019-10-31 13:49 | EKG REPORT ---
SEVERITY:- ABNORMAL ECG - ATRIAL FIBRILLATION PROBABLE LVH WITH SECONDARY REPOL ABNRM ANTERIOR Q WAVES, POSSIBLY DUE TO LVH BORDERLINE PROLONGED QT INTERVAL OLD ANTERIOR LA : Confirmed by: Gaudencio Brody MD 31-Oct-2019 13:48:27
[2019-10-31] MEDS ORDERED: ACETAMINOPHEN 325 MG TABLET PO ONE (14:57)
[2019-10-31 16:57] VITALS: BP 140/60
== END 2019-10-31 16:57 | disposition short-term general hospital (02) ==
LOC: ER 08:31
DX: I48.91 Unspecified atrial fibrillation (principal); R00.1 Bradycardia, unspecified; R07.9 Chest pain, unspecified; R53.1 Weakness; R11.0 Nausea; Z79.01 Long term (current) use of anticoagulants
CPT/HCPCS: 93005; 99291; 36415; 85025; 80053; 84484; 71045; 93010; A9270